=== PATIENT | female | born 1950 | race Caucasian/White ===

== ENCOUNTER → 2018-04-28 08:55 | Outpatient (CLI) | payer OTHER, MEDICARE, SELFPAY ==
[2018-04-28 11:55] LABS: Alanine Aminotransferase 31 IU/L (9-52); Albumin 4.1 g/dL (3.5-5.0); Albumin Globulin Ratio 1.6 (1.0-2.8); Alkaline Phosphatase 39 U/L (38-126); Aspartate Aminotransferase 20 IU/L (14-36); Bilirubin Total 0.6 mg/dL (0.2-1.3); Blood Urea Nitrogen 23 mg/dL (7-17); Carbon Dioxide 30 mmol/L (22-32); Chloride 103 mmol/L (98-107); Cholesterol 198 mg/dL (140-199); Estimated Glomerular Filt Rate 55.5 mL/min (>60); Globulin 2.6 g/dL (1.7-4.1); Glucose 87 mg/dL (80-110); HDL Cholesterol 49 mg/dL (40-60); HEMOLYSIS < 15 (0-50); LDL Cholesterol Calculated 135 mg/dL (<100); Sodium 145 mmol/L (137-145); Total Protein 6.7 g/dL (6.3-8.2); Triglycerides 70 mg/dL (35-150)
== END ==
PROVIDERS: PCP Internal Medicine; Visit Provider Internal Medicine
DX: F33.42 Major depressive disorder, recurrent, in full remission (principal); F41.9 Anxiety disorder, unspecified; F98.8 Other specified behavioral and emotional disorders with onset usually occurring in childhood and adolescence; Z13.6 Encounter for screening for cardiovascular disorders
CPT/HCPCS: 36415; 80053; 80061

== ENCOUNTER → 2019-04-30 07:37 | Outpatient (CLI) | payer OTHER, MEDICARE, SELFPAY ==
[2019-04-30 08:34] LABS: Alanine Aminotransferase 19 IU/L (<35); Albumin 4.4 g/dL (3.5-5.0); Albumin Globulin Ratio 1.9 (1.0-2.8); Alkaline Phosphatase 44 U/L (38-126); Aspartate Aminotransferase 21 IU/L (14-36); BUN Creatinine Ratio 15.5 (6-22); Bilirubin Total 0.8 mg/dL (0.2-1.3); Blood Urea Nitrogen 17 mg/dL (7-17); Calcium 9.5 mg/dL (8.4-10.2); Carbon Dioxide 28 mmol/L (22-32); Chloride 103 mmol/L (98-107); Cholesterol 236 mg/dL (140-199); Estimated Glomerular Filt Rate 49.5 mL/min (>60); Globulin 2.3 g/dL (1.7-4.1); Glucose 94 mg/dL (80-110); HDL Cholesterol 60 mg/dL (40-60); HEMOLYSIS < 15 (0-50); LDL Cholesterol Calculated 154 mg/dL (<100); Potassium 4.1 mmol/L (3.4-5.1); Sodium 137 mmol/L (137-145); Total Protein 6.7 g/dL (6.3-8.2); Triglycerides 111 mg/dL (35-150)
== END ==
PROVIDERS: Family Provider Internal Medicine; PCP Internal Medicine; Visit Provider Internal Medicine
DX: Z13.1 Encounter for screening for diabetes mellitus (principal); Z13.6 Encounter for screening for cardiovascular disorders; F33.42 Major depressive disorder, recurrent, in full remission; F98.8 Other specified behavioral and emotional disorders with onset usually occurring in childhood and adolescence
CPT/HCPCS: 36415; 80053; 80061

== ENCOUNTER → 2019-05-31 08:45 | Outpatient (CLI) | payer OTHER, MEDICARE, SELFPAY ==
--- NOTE | 2019-05-31 08:48 | DI.MG.S_ITS ---
BILATERAL DIGITAL SCREENING MAMMOGRAM 3D/2D WITH CAD: 05/31/2019 CLINICAL: Routine screening Family history of breast cancer. Comparison is made to exams dated: 05/05/2017 mammogram, 09/12/2015 mammogram, and 08/12/2014 mammogram - [facility]. The tissue of both breasts is heterogeneously dense. This may lower the sensitivity of mammography. Current study was also evaluated with a Computer Aided Detection (CAD) system. No significant masses, calcifications, or other findings are seen in either breast. There has been no significant interval change. IMPRESSION: NEGATIVE There is no mammographic evidence of malignancy. A 1 year screening mammogram is recommended. This exam was interpreted at Station ID: [id number]. NOTE: For mammograms, a report in lay terms will be sent to the patient. Approximately 15% of breast malignancies will not be visualized mammographically. In the management of a palpable breast mass, a negative mammogram must not discourage biopsy of a clinically suspicious lesion. Electronically Signed By: Yaneth zaragoza/penelope:05/31/2019 11:32:25 letter sent: Normal Exam ACR BI-RADS Category 1: Negative 3341F
== END ==
PROVIDERS: PCP Internal Medicine; Visit Provider Internal Medicine
DX: Z12.31 Encounter for screening mammogram for malignant neoplasm of breast (principal); Z80.3 Family history of malignant neoplasm of breast
CPT/HCPCS: 77063; 77067

== ENCOUNTER 2019-08-21 09:37 | Day surgery (SDC) | payer OTHER, MEDICARE, SELFPAY ==
--- NOTE | 2019-08-21 | PATH_ITS ---
[facility] Accession Number: [id number] . 01 Material submitted: . PART A: colon - COLON POLYP BIOPSY AT 40 CM PART B: colon - COLON POLYP AT 60 CM PART C: hepatic flexure - COLON POLYP BIOPSY AT HEPATIC FLEXURE PART D: colon - ASCENDING COLON NEAR CECUM POLYP BIOPSY . 02 Diagnosis: A. Colon, Polyp at 40 cm, Biopsy: Hyperplastic polyp with features of mucosal prolapse. . B. Colon, Polyp at 60 cm, Biopsy: Serrated lesion, favor sessile serrated adenoma. . C. Colon, Polyp at Hepatic Flexure, Biopsy: Serrated lesion, favor sessile serrated adenoma. . D. Ascending Colon Near Cecum, Polyp, Biopsy: Sessile serrated adenoma with areas of cytological dysplasia. Please see comment. No evidence of malignancy. [facility] 08/22/2019 0952 Local . 02 Comment: Part D: Current surveillance guidelines recommend that a sessile serrated adenoma with a cytological dysplasia should be treated similar to an advanced adenoma. Complete polypectomy and shortened surveillance interval are recommended. . As part of routine senior quality technician, Dr. Antonio Yanes also reviewed part D and agrees with the diagnosis. Dr. Jessica discussed results with Dr. Jamison on 08/22/2019. . 02 Electronically signed: . Lexis Jessica MD, Pathologist NPI- [id number] . 01 Gross description: . Part A: COLON POLYP BIOPSY AT 40 CM: Received in formalin are 2 fragment(s) of matthews, soft tissue measuring 0.1 x 0.1 x 0.1 cm to 0.2 x 0.2 x 0.2 cm submitted entirely in 1 cassette(s) Part B: COLON POLYP AT 60 CM: Received in formalin are multiple fragment(s) of matthews, soft tissue measuring 0.1 x 0.1 x 0.1 cm to 0.6 x 0.6 x 0.5 cm submitted entirely in 1 cassette(s) Part C: COLON POLYP BIOPSY AT HEPATIC FLEXURE: Received in formalin are 3 fragment(s) of matthews, soft tissue measuring 0.1 x 0.1 x 0.1 cm to 0.2 x 0.2 x 0.2 cm submitted entirely in 1 cassette(s) Part D: ASCENDING COLON NEAR CECUM POLYP BIOPSY: Received in formalin are multiple fragment(s) of matthews, soft tissue measuring 0.1 x 0.1 x 0.1 cm to 0.5 x 0.5 x 0.4 cm submitted entirely in 2 cassette(s) /[facility] 08/21/20192031 Local . 02 Pathologist provided ICD-10: D12.6, D12.0, D12.3 . 02 CPT . 247408, 879217, 842568, 087965 Performed at: 01 [facility] [address] [id number] MD Reed Jones MD Phone: [phone] Performed at: 02 [facility] [place] [address] [place], [place] [id number] MD Lexis Jessica MD Phone: [phone]
[2019-08-21] MEDS: SODIUM CHLORIDE 0.9% 1,000 ML 200 ML IV (09:58)
[2019-08-21 10:11] VITALS: BP 152/73; PULSE 57; RESP 15; TEMP 36.7; O2SAT 97; BMI 30.5
--- NOTE | 2019-08-21 11:19 | PM.HP.1 ---
History of Present Illness History of Present Illness Date Patient Seen: 08/21/19 Time Patient Seen: 11:19 Chief complaint: [id number] Narrative: The patient is a woman who is about 10 years out from her last colonoscopy. She apparently had a flat lesion on that exam and was advised to come back sooner but the 2nd attempt resulted in a poor prep and she has just been putting it off ever since. She has no family history of colon cancer Patient History Medical History Acne (Resolved ~1964) Anxiety (Chronic) Attention deficit disorder (Chronic) Cataract (Resolved 2013) Chicken pox (Resolved ~1957) Chronic back pain (Chronic ~1989) Hand fracture (Resolved 2005) History of adenomatous polyp of colon (Inactive) HIV exposure (Chronic 11/13/13) Major depression in partial remission (Chronic) Measles (Resolved ~1957) Mumps (Resolved ~1957) Obstructive sleep apnea syndrome (Chronic 03/30/16) Recurrent major depressive disorder, in full remission (Chronic ~1969) Surgical History Anesthesia complication (Resolved) History of colonoscopy with polypectomy (Resolved 01/09/10) History of left cataract surgery (Resolved 12/28/16) History of right cataract surgery (Resolved 01/11/17) Status post hysterectomy (Resolved 1994) Status post tonsillectomy and adenoidectomy (Resolved ~1955) Family & Social History Family History Brother Age: 64 Heart disease Hypertension Mother Age: 91 Macular degeneration Heart disease Sister Mental health problem Father Dementia Grandfather Lung disease Grandmother No problems noted. Grandfather Heart attack Grandmother No problems noted. Sister No problems noted. Social History: household members spouse lives independently Yes caregiver/support person No Tobacco & Substance use: Tobacco type cigarettes Smoking Status Current some day smoker alcohol intake current alcohol intake frequency 0-2 drinks per day Substance Use Type does not use Meds Home Medications and Allergies Home Medications Medication Instructions Recorded Confirmed Type CA PANTOTHENATE/FOLIC ACID/VIT 1 tab PO Q DAY #0 06/30/11 08/02/19 History (MULTIVITAMIN) omeprazole 20 mg PO QDAY #90 cap 11/14/18 08/21/19 Rx ResMed AirSense 10 Auto CPAP #1 ea 01/25/19 08/02/19 History venlafaxine 75 mg capsule,extended 75 mg PO BEDTIME #30 cap 05/03/19 08/21/19 Rx release 24 hr sertraline 100 mg tablet See Rx Instructions .ROUTE 07/03/19 08/21/19 Rx .COMPLEX #60 tablet methylphenidate HCl 10 mg tablet 10 mg PO TID #90 tab 08/06/19 08/21/19 Rx Allergies Allergy/AdvReac Type Severity Reaction Status Date / Time Penicillins [PENICILLINS] AdvReac Intermediate face Verified 08/21/19 10:01 swelling Sulfa (Sulfonamide AdvReac Intermediate GI Verified 08/21/19 10:01 Antibiotics) disturbance [SULFA (SULFONAMIDE ANTIBIOTICS)] Review of Systems Review of Systems ROS: Yes All systems reviewed with the patient and are negative except as otherwise documented Exam Vital Signs (past 8 hours): - 08/21/19 10:11 Temperature 98.0 F Pulse Rate 57 L Respiratory Rate 15 Blood Pressure 152/73 H Pulse Oximetry 97 Oxygen Delivery Method Room Air Narrative Exam Narrative: Pleasant cooperative patient no apparent distress. Lungs are clear to auscultation. No rales or rhonchi. Heart regular rate and rhythm no murmur gallop. Abdomen is soft nontender without mass. No obvious hernias. Patient is alert and oriented x3. Assessment & Plan Assessment & Plan narrative: The patient for a screening colonoscopy. I have discussed the procedure with them. Risks of bleeding, perforation which would necessitate major operation, failure to find remove all lesions, the potential tattoo were all discussed. All questions were answered. They wished to proceed.
--- NOTE | 2019-08-21 11:21 | PM.PREOP ---
Pre-operative Note Interval Note History & Physical reviewed/Exam performed by Physician: Yes Changes to H&P: No ASA Class (for procedural sedation): II
[2019-08-21] MEDS: MIDAZOLAM 5 MG/5 ML VIAL IV (12:04)
[2019-08-21] MEDS: fentaNYL 250 MCG/5 ML INJ IV (12:05)
[2019-08-21 13:04] VITALS: BP 156/82; PULSE 56; RESP 20; TEMP 36.5; O2SAT 99
--- NOTE | 2019-08-21 13:05 | PM.OP.ENDO ---
Operative Date/Time/Diagnoses Date of procedure: 08/21/19 Time of procedure: 13:05 Pre-op diagnosis: History of a flat polyp. Last colonoscopy over 10 years ago. In the interim she has had 1 attempted colonoscopy with a poor prep. She delayed further follow-up until now. Post-op diagnosis: same (Large polyps in the right colon. See details in the text. Extensive sigmoid diverticulosis. Thrombosed external hemorrhoid resolving.) Procedure & Clinicians Study performed: Colonoscopy with hot snare polypectomy multiple Same procedure as scheduled: Yes Indications: History of a polyp. Overdue for colonoscopy. Surgeon: Chaim Jamison Procedure Notes SCOAP/Timeout: Performed Procedure in detail: The patient was placed in the left lateral decubitus position and underwent IV sedation directed by the surgeon consisting of fentanyl and Versed. Digital exam was remarkable for a resolving thrombosed external hemorrhoid.. The scope was inserted and advanced through the rectum into the sigmoid, descending, transverse, and ascending colon. There was a polyp at 40 cm near the opening of a diverticulum which I biopsied and removed. There was a larger lesion at 60 which I biopsied and decided to remove the remainder of on the way out with a snare. The patient was noted to have extensive sigmoid diverticulosis. In area of tattoo was noted as I it went in that was somewhere near the hepatic flexure. This was presumed to represent the site of her prior flat polyp. In the region there were visible irregularities of the mucosa that were flat lesions. As I went from what I presume to be the hepatic flexure to the cecum I encountered some rather large flat polypoid lesions. All appeared to be soft and floppy. The cecum was reached identified by the ileocecal valve and the appendiceal opening. From the ascending colon near the cecum to the hepatic flexure there were multiple large lesions which I snared in pieces. All of these were flat. As best I could tell I had removed them but it was quite difficult to tell due to their size and the fact that the transition from normal mucosa to polyp was fairly subtle. The scope was gradually brought out. The polyp that I identified going in was located at 60 cm and I snared the remainder of it. This was placed in the 2nd container. No other Polyps were found. The scope ultimately was retroflexed in the rectum. The appearance was remarkable for and irritated hemorrhoid presumptively the extension of the thrombosed external hemorrhoid. The scope was removed and the patient tolerated the procedure well. The prep was excellent. Scope withdrawal time: At least 40minutes total. Sedation minutes: 53 Findings: diverticulosis (Extensive sigmoid) and polyp (Multiple) Specimen(s): other (Polyps) Complications: none Post-procedure Recommendations: Other recommendation (Repeat colonoscopy in 3 months to re-evaluate the lesions in the right colon) Follow up: months (Three for colonoscopy) Disposition: PACU
[2019-08-21 13:08] VITALS: BP 158/89; PULSE 58; RESP 17; O2SAT 96
[2019-08-21 13:13] VITALS: BP 148/82; PULSE 55; RESP 17; TEMP 36.4; O2SAT 98
[2019-08-21 13:31] VITALS: BP 148/76; PULSE 53; RESP 17; TEMP 36.1; O2SAT 97
--- NOTE | 2019-08-21 13:37 | SUR.PHASEII ---
Pt states she is ready to get dressed. IV removed and pt instructed to sit at edge of bed to get redressed. Ride notified and will me us at ED. Pt escorted to ED via [facility]
== END 2019-08-21 13:39 | disposition home or self-care (01) ==
PROVIDERS: PCP Internal Medicine; Referring Provider Specialist; Visit Provider Specialist
PROC: 0DJD8ZZ Inspection of Lower Intestinal Tract, Via Natural or Artificial Opening Endoscopic (ICD-10-PCS; CPT 45378; principal; 2019-08-21 10:45)
DX: Z12.11 Encounter for screening for malignant neoplasm of colon (principal); Z86.010 Personal history of colon polyps; K57.30 Diverticulosis of large intestine without perforation or abscess without bleeding; K64.8 Other hemorrhoids; D12.6 Benign neoplasm of colon, unspecified; D12.0 Benign neoplasm of cecum; D12.3 Benign neoplasm of transverse colon
CPT/HCPCS: 45385; 99152; 99153; J2250; J3010

== ENCOUNTER → 2020-04-30 09:55 | Outpatient (CLI) | payer OTHER, MEDICARE, SELFPAY ==
[2020-04-30 11:05] LABS: Alanine Aminotransferase 21 IU/L (<35); Albumin Globulin Ratio 1.8 (1.0-2.8); Alkaline Phosphatase 42 U/L (38-126); Aspartate Aminotransferase 19 IU/L (14-36); BUN Creatinine Ratio 21.8 (6-22); Bilirubin Total 0.5 mg/dL (0.2-1.3); Blood Urea Nitrogen 19 mg/dL (7-17); Calcium 9.3 mg/dL (8.4-10.2); Carbon Dioxide 32 mmol/L (22-32); Chloride 107 mmol/L (98-107); Cholesterol 197 mg/dL (140-199); Estimated Glomerular Filt Rate > 60.0 mL/min (>60); Globulin 2.2 g/dL (1.7-4.1); Glucose 103 mg/dL (80-110); HDL Cholesterol 65 mg/dL (40-60); HEMOLYSIS < 15 (0-50); LDL Cholesterol Calculated 114 mg/dL (<100); Potassium 4.1 mmol/L (3.4-5.1); Sodium 139 mmol/L (137-145); Total Protein 6.2 g/dL (6.3-8.2); Triglycerides 90 mg/dL (35-150)
== END ==
PROVIDERS: PCP Internal Medicine; Referring Provider Internal Medicine; Visit Provider Internal Medicine
DX: F33.42 Major depressive disorder, recurrent, in full remission (principal); F90.0 Attention-deficit hyperactivity disorder, predominantly inattentive type; Z13.220 Encounter for screening for lipoid disorders; Z13.6 Encounter for screening for cardiovascular disorders
CPT/HCPCS: 36415; 80053; 80061

== ENCOUNTER → 2021-04-04 09:47 | Outpatient (CLI) | payer OTHER, MEDICARE, SELFPAY ==
--- NOTE | 2021-04-04 09:49 | DI.MG.S_ITS ---
BILATERAL DIGITAL SCREENING MAMMOGRAM 3D/2D WITH CAD: 04/04/2021 CLINICAL: Routine screening. Family history of breast cancer. Comparison is made to exams dated: 05/31/2019 mammogram, 05/05/2017 mammogram, 09/12/2015 mammogram, and 08/12/2014 mammogram - [facility]. The tissue of both breasts is heterogeneously dense. This may lower the sensitivity of mammography. Current study was also evaluated with a Computer Aided Detection (CAD) system. No significant masses, calcifications, or other findings are seen in either breast. There has been no significant interval change. IMPRESSION: NEGATIVE There is no mammographic evidence of malignancy. A 1 year screening mammogram is recommended. This exam was interpreted at Station ID: [id number]. NOTE: For mammograms, a report in lay terms will be sent to the patient. Approximately 15% of breast malignancies will not be visualized mammographically. In the management of a palpable breast mass, a negative mammogram must not discourage biopsy of a clinically suspicious lesion. Electronically Signed By: Devin teran/penelope:04/06/2021 08:11:11 letter sent: Normal Exam ACR BI-RADS Category 1: Negative 3341F
== END ==
PROVIDERS: PCP Internal Medicine; Referring Provider Internal Medicine; Visit Provider Internal Medicine
DX: Z12.31 Encounter for screening mammogram for malignant neoplasm of breast (principal); Z80.3 Family history of malignant neoplasm of breast
CPT/HCPCS: 77063; 77067

== ENCOUNTER → 2021-04-28 11:06 | Outpatient (CLI) | payer OTHER, MEDICARE, SELFPAY ==
[2021-04-28 12:34] LABS: Alanine Aminotransferase 18 IU/L (<35); Albumin 4.2 g/dL (3.5-5.0); Albumin Globulin Ratio 1.9 (1.0-2.8); Alkaline Phosphatase 41 U/L (38-126); Aspartate Aminotransferase 24 IU/L (14-36); BUN Creatinine Ratio 14.6 (6-22); Bilirubin Total 0.5 mg/dL (0.2-1.3); Blood Urea Nitrogen 14 mg/dL (7-17); Calcium 9.5 mg/dL (8.4-10.2); Carbon Dioxide 33 mmol/L (22-32); Chloride 101 mmol/L (98-107); Estimated Glomerular Filt Rate 57.6 mL/min (>60); Globulin 2.2 g/dL (1.7-4.1); Glucose 98 mg/dL (80-110); HEMOLYSIS < 15 (0-50); Potassium 4.3 mmol/L (3.4-5.1); Sodium 138 mmol/L (137-145); Total Protein 6.4 g/dL (6.3-8.2)
== END ==
PROVIDERS: PCP Internal Medicine; Referring Provider Internal Medicine; Visit Provider Internal Medicine
DX: F33.41 Major depressive disorder, recurrent, in partial remission (principal); F90.0 Attention-deficit hyperactivity disorder, predominantly inattentive type; Z79.899 Other long term (current) drug therapy
CPT/HCPCS: 36415; 80053

== ENCOUNTER → 2022-04-27 11:00 | Outpatient (CLI) | payer OTHER, MEDICARE, SELFPAY ==
[2022-04-27 11:47] LABS: Add Manual Diff / Slide Review NO; Basophils Absolute Auto 100 /uL (0-100); Basophils Percent Auto 1.2 % (0-2); Eosinophils Absolute Auto 300 /uL (0-450); Eosinophils Percent Auto 3.9 % (2-4); Hematocrit 39.5 % (36-46); Hemoglobin 13.5 g/dL (12.0-16.0); Lymphocytes Absolute Auto 2800 /uL (1100-4500); Lymphocytes Percent Auto 40.9 % (25-40); Mean Corpuscular HGB Conc 34.1 % (30-36); Mean Corpuscular Hemoglobin 32.1 PG (26-34); Mean Corpuscular Volume 94.1 fL (80-100); Monocytes Absolute Auto 400 /uL (0-900); Monocytes Percent Auto 6.1 % (3-14); Neutrophils Absolute Auto 3200 /uL (1500-7000); Neutrophils Percent Auto 47.9 % (50-75); Platelet Count 203 X10^3/uL (150-400); Red Cell Distribution Width 13.2 % (11.6-14.8); White Blood Cell Count 6.8 X10^3/uL (4.5-11.0)
[2022-04-27 12:02] LABS: Alanine Aminotransferase 27 IU/L (<35); Albumin 4.4 g/dL (3.5-5.0); Albumin Globulin Ratio 1.7 (1.0-2.8); Alkaline Phosphatase 47 U/L (38-126); Aspartate Aminotransferase 32 IU/L (14-36); BUN Creatinine Ratio 16.8 (6-22); Bilirubin Total 0.5 mg/dL (0.2-1.3); Blood Urea Nitrogen 16 mg/dL (7-17); Calcium 9.2 mg/dL (8.4-10.2); Carbon Dioxide 30 mmol/L (22-32); Chloride 103 mmol/L (98-107); Estimated Glomerular Filt Rate > 60 mL/min (>60); Globulin 2.6 g/dL (1.7-4.1); Glucose 99 mg/dL (80-110); HEMOLYSIS 15 (0-50); Potassium 4.3 mmol/L (3.4-5.1); Sodium 137 mmol/L (137-145)
== END ==
PROVIDERS: PCP Internal Medicine; Referring Provider Internal Medicine; Visit Provider Internal Medicine
DX: D64.9 Anemia, unspecified (principal); F33.41 Major depressive disorder, recurrent, in partial remission; Z86.010 Personal history of colon polyps
CPT/HCPCS: 36415; 80053; 85025

== ENCOUNTER → 2022-05-05 10:01 | Outpatient (CLI) | payer OTHER, MEDICARE, SELFPAY ==
[2022-05-05 10:49] LABS: COVID19 -Nasal RAPID Negative (Negative)
== END ==
PROVIDERS: PCP Internal Medicine; Visit Provider Surgery
DX: Z20.822 Contact with and (suspected) exposure to COVID-19 (principal); Z01.812 Encounter for preprocedural laboratory examination
CPT/HCPCS: 87635; C9803

== ENCOUNTER 2022-05-06 08:31 | Day surgery (SDC) | payer OTHER, MEDICARE, SELFPAY ==
--- NOTE | 2022-05-06 | PATH_ITS ---
[facility] Accession Number: [id number] . 01 Material submitted: . PART A: colon - CECAL POLYP PART B: colon - ASCENDING COLON POLYP PART C: colon - HEPATIC FLEXURE COLON POLYP PART D: colon - DESCENDING COLON POLYP . 01 Diagnosis: A. Cecum, Polyp, Biopsy: Sessile serrated adenoma. . B. Ascending Colon, Polyp, Biopsy: Sessile serrated adenoma. . C. Hepatic Flexure, Polyp, Biopsy: Sessile serrated adenoma. . D. Descending Colon Polyp, Biopsy: Sessile serrated adenoma. V 05/10/2022 1440 Local . 01 Electronically signed: . Lexis Jessica MD, Pathologist NPI- [id number] . 01 Gross description: . Part A: CECAL POLYP: Received in formalin are multiple fragment(s) of matthews, soft tissue measuring 0.1 x 0.1 x 0.1 cm to 0.7 x 0.5 x 0.5 cm submitted entirely in 1 cassette(s) Part B: ASCENDING COLON POLYP: Received in formalin are multiple fragment(s) of matthews, soft tissue measuring 0.1 x 0.1 x 0.1 cm to 0.7 x 0.7 x 0.5 cm submitted entirely in 1 cassette(s) Part C: HEPATIC FLEXURE COLON POLYP: Received in formalin are multiple fragment(s) of matthews, soft tissue measuring 0.1 x 0.1 x 0.1 cm to 0.6 x 0.6 x 0.4 cm submitted entirely in 1 cassette(s) Part D: DESCENDING COLON POLYP: Received in formalin is 1 fragment(s) of matthews, soft tissue measuring 0.8 x 0.8 x 0.3 cm submitted entirely in 1 cassette(s) /[facility] 05/07/2022 1950 Local . 01 Pathologist provided ICD-10: D12.0, D12.2, D12.3, D12.4 . 01 CPT . 759380, 867366, 643740, 839182 Specimen Comment: A courtesy copy of this report has been sent to [phone] Performed at: 01 [facility] [address] [place] [address], [place], [place] [id number] MD Reed Jones MD Phone: [phone]
[2022-05-06 08:49] VITALS: BP 125/80; PULSE 73; RESP 20; TEMP 36.4; O2SAT 98; BMI 31.3
[2022-05-06] MEDS: LACTATED RINGERS 1,000 ML 200 ML IV (08:54)
--- NOTE | 2022-05-06 09:40 | PM.HP.1 ---
History of Present Illness History of Present Illness Date Patient Seen: 05/06/22 Time Patient Seen: 09:40 Chief complaint: Colonoscopy Narrative: Anais is a 71-year-old woman who has had significant polyps removed past. She most recently had a colonoscopy in [address] Jamison in several right-sided polyps were biopsied Patient History Medical History (Updated 05/09/20 @ 11:25 by Crow Mueller MD) Acne (~1965) Anxiety Attention deficit disorder Cataract (2013) Chronic back pain (~1989) Hand fracture (2005) History of adenomatous polyp of colon HIV exposure (11/13/13) Major depression in partial remission Obstructive sleep apnea syndrome (03/30/16) Recurrent major depressive disorder, in full remission (~1969) Surgical History (Updated 07/24/20 @ 08:47 by userfox Pr) Anesthesia complication History of colonoscopy with polypectomy (01/09/10) History of left cataract surgery (12/28/16) History of right cataract surgery (01/11/17) Status post hysterectomy (1994) Status post tonsillectomy and adenoidectomy (~1955) Family & Social History Family History Brother Age: 67 Heart disease Hypertension Mother Age: 94 Macular degeneration Heart disease Sister Mental health problem Father Dementia Grandfather Lung disease Grandmother No problems noted. Grandfather Heart attack Grandmother No problems noted. Sister No problems noted. Social History: household members spouse lives independently Yes caregiver/support person No Tobacco & Substance use: Tobacco type cigarettes Smoking Status Current some day smoker alcohol intake current alcohol intake frequency 0-2 drinks per day Substance Use Type does not use Meds Home Medications and Allergies Home Medications Medication Instructions Recorded Confirmed Type CA PANTOTHENATE/FOLIC ACID/VIT 1 tab PO Q DAY ##0 06/30/11 04/27/22 History (MULTIVITAMIN) ResMed AirSense 10 Auto CPAP #1 ea 01/25/19 04/27/22 History sertraline 100 mg tablet 200 mg PO DAILY #180 tabs 04/08/21 05/06/22 Rx venlafaxine 75 mg capsule,extended 75 mg PO BEDTIME #90 caps 04/30/21 05/06/22 Rx release 24 hr methylphenidate HCl 20 mg 20 mg PO DAILY #30 tabs 04/27/22 05/06/22 Rx tablet,extended release omeprazole 20 mg capsule,delayed 20 mg PO QDAY #90 caps 04/27/22 05/06/22 Rx release Allergies Allergy/AdvReac Type Severity Reaction Status Date / Time Penicillins [PENICILLINS] AdvReac Intermediate face Verified 05/06/22 08:43 swelling Sulfa (Sulfonamide AdvReac Intermediate GI Verified 05/06/22 08:43 Antibiotics) disturbance [SULFA (SULFONAMIDE ANTIBIOTICS)] Exam Vital Signs (past 8 hours): - 05/06/22 08:49 Temperature 97.6 F Pulse Rate 73 Respiratory Rate 20 Blood Pressure 125/80 Pulse Oximetry 98 Oxygen Delivery Method Room Air Oxygen Delivery Method Room Air Const General: comfortable Resp Effort & Inspection: normal respiratory effort Assessment & Plan Assessment and plan (1) History of adenomatous polyp of colon: Status: Inactive Plan 71-year-old woman with a history of advanced colon polyps who is here for colonoscopy. We reviewed the risks and benefits and she would like to proceed. Time Spent With Patient Critical Care time: I spent a total of [] minutes of critical care time on this patient's care today; this time is exclusive of procedural time.
--- NOTE | 2022-05-06 11:00 | PM.OP.COLON ---
Operative Date/Time/Diagnoses Date of procedure: 05/06/22 Time of procedure: 11:01 Pre-op diagnosis: History of polyps Procedure & Clinicians Study performed: Colonoscopy Same procedure as scheduled: Yes Surgeon: Magen Flores Procedure Notes Procedure in detail: Surgeon: Magen Flores MD Anesthesia: Deep sedation by Dr. Powers Procedure: The patient was brought to the endoscopy suite, placed in left lateral decubitus position. The patient was connected to monitoring devices. A time-out was performed. Sedation was administered. Once the patient was adequately sedated, a digital rectal exam was performed and was normal. The scope was then inserted and advanced to the cecum where the appendiceal orifice was identified and photographed. The scope was then slowly withdrawn over greater than 6 minutes. The mucosa was thoroughly inspected. 1. There was a rather large flat polyp in the cecum. This polyp was probably 3 cm across. This was lifted with a saline lift. It was then removed in multiple passes using cold snare and hot snare. We used both a 10 mm snare and a 20 mm snare. Snare was used to divide the chunks of tissue in 2 small enough fragments that they could be suctioned into trap. This flat polyp appeared to be on a fold and could not be completely removed. 2. There was another similar polyp in the ascending colon which was probably 2 cm across. This was also removed piecemeal with hot snare. This was sent separately. 3. There was a 1.5 cm flat polyp near the hepatic flexure or proximal transverse colon. This was removed with hot snare. Because of its location in the presumed proximal transverse colon a tattoo was placed at this location in case the patient ends up needing a right hemicolectomy. 4. There was a 1 cm flat polyp in the descending colon removed with a hot snare. The scope was retroflexed in the rectum. No other abnormalities were noted. The scope was straightened and removed. The patient was awakened and brought to recovery. Scope withdrawal time: 55 Sedation time: 65 EBL: 10 mL Findings: Multiple flat polyps as detailed above Post-procedure Recommendations: Will call with biopsy results Follow up: weeks Disposition: PACU
[2022-05-06 11:02] VITALS: BP 148/73; PULSE 52; RESP 14; TEMP 37
[2022-05-06 11:07] VITALS: BP 132/77; PULSE 69; RESP 14; O2SAT 98
[2022-05-06 11:12] VITALS: BP 132/72; PULSE 48; RESP 14; O2SAT 97
[2022-05-06 11:17] VITALS: BP 131/81; PULSE 48; RESP 12; O2SAT 99
[2022-05-06 11:24] VITALS: BP 112/62; PULSE 53; RESP 16; TEMP 36.4; O2SAT 97
== END 2022-05-06 11:38 | disposition home or self-care (01) ==
PROVIDERS: PCP Internal Medicine; Referring Provider Surgery; Visit Provider Surgery
PROC: 0DJD8ZZ Inspection of Lower Intestinal Tract, Via Natural or Artificial Opening Endoscopic (ICD-10-PCS; CPT 45378; principal; 2022-05-06 09:30)
DX: Z12.11 Encounter for screening for malignant neoplasm of colon (principal); Z86.010 Personal history of colon polyps; D12.2 Benign neoplasm of ascending colon; D12.0 Benign neoplasm of cecum; D12.4 Benign neoplasm of descending colon; D12.3 Benign neoplasm of transverse colon
CPT/HCPCS: 45381; 45385; J2704; J3010

== ENCOUNTER → 2023-04-16 10:39 | Outpatient (CLI) | payer OTHER, MEDICARE, SELFPAY ==
--- NOTE | 2023-04-16 | DI.MG.S_ITS ---
BILATERAL DIGITAL SCREENING MAMMOGRAM 3D/2D WITH CAD: 04/16/2023 CLINICAL: Routine screening. Family history of breast cancer. Comparison is made to exams dated: 04/04/2021 mammogram, 05/31/2019 mammogram, 05/05/2017 mammogram, and 09/12/2015 mammogram - [facility]. Both breasts are heterogeneously dense, which may obscure small masses (category c / 51-75% glandular tissue). Current study was also evaluated with a Computer Aided Detection (CAD) system. No significant masses, calcifications, or other findings are seen in either breast. There has been no significant interval change. IMPRESSION: NEGATIVE There is no mammographic evidence of malignancy. A 1 year screening mammogram is recommended. Based on the Tyrer Cuzick model (a risk assessment model) the patient's lifetime risk is 4.6% and her 10 year risk is 3.1%. According to the ACR, ACS, and NCCN guidelines, an annual breast MRI exam along with mammogram is recommended if the patient's lifetime risk is 20% or greater. This exam was interpreted at Station ID: [id number]. NOTE: For mammograms, a report in lay terms will be sent to the patient. Approximately 15% of breast malignancies will not be visualized mammographically. In the management of a palpable breast mass, a negative mammogram must not discourage biopsy of a clinically suspicious lesion. Electronically Signed By: Devin teran/penelope:04/16/2023 12:59:11 letter sent: Normal Exam ACR BI-RADS Category 1: Negative 3341F
== END ==
PROVIDERS: PCP Internal Medicine; Referring Provider Internal Medicine; Visit Provider Internal Medicine
DX: Z12.31 Encounter for screening mammogram for malignant neoplasm of breast (principal); Z80.3 Family history of malignant neoplasm of breast
CPT/HCPCS: 77063; 77067

== ENCOUNTER → 2023-05-05 12:53 | Outpatient (CLI) | payer OTHER, MEDICARE, SELFPAY ==
[2023-05-05 13:49] LABS: Alanine Aminotransferase 21 IU/L (<35); Albumin 4.2 g/dL (3.5-5.0); Albumin Globulin Ratio 1.8 (1.0-2.8); Alkaline Phosphatase 39 U/L (38-126); Aspartate Aminotransferase 20 IU/L (14-36); BUN Creatinine Ratio 16.5 (6-22); Bilirubin Total 0.6 mg/dL (0.2-1.3); Blood Urea Nitrogen 17 mg/dL (7-17); Calcium 9.8 mg/dL (8.4-10.2); Carbon Dioxide 31 mmol/L (22-32); Chloride 101 mmol/L (98-107); Estimated Glomerular Filt Rate 58 mL/min (>60); Globulin 2.4 g/dL (1.7-4.1); Glucose 98 mg/dL (80-110); HEMOLYSIS < 15 (0-50); Potassium 4.2 mmol/L (3.4-5.1); Sodium 138 mmol/L (137-145); Total Protein 6.6 g/dL (6.3-8.2)
== END ==
PROVIDERS: PCP Internal Medicine; Referring Provider Internal Medicine; Visit Provider Internal Medicine
DX: F41.9 Anxiety disorder, unspecified (principal); F98.8 Other specified behavioral and emotional disorders with onset usually occurring in childhood and adolescence; G47.33 Obstructive sleep apnea (adult) (pediatric); F32.4 Major depressive disorder, single episode, in partial remission
CPT/HCPCS: 36415; 80053

== ENCOUNTER → 2023-08-30 16:48 | Outpatient (CLI) | payer OTHER, MEDICARE, SELFPAY ==
--- NOTE | 2023-08-30 16:50 | DI.RAD.S_ITS ---
PROCEDURE: XR ANKLE RT MIN 3V INDICATIONS: right ankle pain TECHNIQUE: Three views of the ankle were acquired. COMPARISON: None. FINDINGS: Bones: Normal mineralization. There are minimally displaced avulsion fractures or degenerative spurs at the distal fibula. There is a small, corticated probable ossicle distal to the fibula as well. Mild spurring at the medial tibiotalar articulation. Soft tissues: No tibiotalar joint effusion. Moderate lateral periarticular soft tissue thickening. Achilles tendon appears normal. IMPRESSION: Possible distal fibular tip avulsion fractures with overlying soft tissue swelling. Dictated by: Yaneth Holliday M.D. on 08/31/2023 at 10:08 Approved by: Yaneth Holliday M.D. on 08/31/2023 at 10:11
== END ==
LOC: RAD 16:50
PROVIDERS: PCP Internal Medicine; Referring Provider Internal Medicine; Visit Provider Internal Medicine
DX: M25.571 Pain in right ankle and joints of right foot (principal); M79.89 Other specified soft tissue disorders
CPT/HCPCS: 73610

== ENCOUNTER → 2024-05-23 14:58 | Outpatient (CLI) | payer OTHER, MEDICARE, SELFPAY ==
--- NOTE | 2024-05-23 14:59 | DI.MG.S_ITS ---
BILATERAL DIGITAL SCREENING MAMMOGRAM 3D/2D WITH CAD: 05/23/2024 CLINICAL: Routine screening. Family history of breast cancer. Comparison is made to exams dated: 04/16/2023 mammogram, 04/04/2021 mammogram, and 05/31/2019 mammogram - [facility]. The breasts are heterogeneously dense, which may obscure small masses (category c / 51-75% glandular tissue). Current study was also evaluated with a Computer Aided Detection (CAD) system. There is a focal asymmetry in the right breast at 12 o'clock anterior depth. No other significant masses, calcifications, or other findings are seen in either breast. IMPRESSION: INCOMPLETE: NEED ADDITIONAL IMAGING EVALUATION The focal asymmetry in the right breast is indeterminate. Additional views with possible ultrasound are recommended. Based on the Tyrer Cuzick model (a risk assessment model) the patient's lifetime risk is 8.6% and her 10 year risk is 6.4%. According to the ACR, ACS, and NCCN guidelines, an annual breast MRI exam along with mammogram is recommended if the patient's lifetime risk is 20% or greater. This exam was interpreted at Station ID: [id number]. NOTE: For mammograms, a report in lay terms will be sent to the patient. Approximately 15% of breast malignancies will not be visualized mammographically. In the management of a palpable breast mass, a negative mammogram must not discourage biopsy of a clinically suspicious lesion. Electronically Signed By: Azul layne/penelope:05/23/2024 16:03:05 letter sent: Additional Imaging Needed ACR BI-RADS Category 0: Incomplete: Need Additional Imaging Evaluation
== END ==
PROVIDERS: PCP Internal Medicine; Referring Provider Internal Medicine; Visit Provider Internal Medicine
DX: Z12.31 Encounter for screening mammogram for malignant neoplasm of breast (principal); Z80.3 Family history of malignant neoplasm of breast; R92.333 Mammographic heterogeneous density, bilateral breasts
CPT/HCPCS: 77063; 77067

== ENCOUNTER → 2024-06-06 | Outpatient (CLI) | payer OTHER, MEDICARE, SELFPAY ==
--- NOTE | 2024-06-06 09:13 | DI.US.S_ITS ---
LIMITED ULTRASOUND OF RIGHT BREAST AND AXILLA: 06/06/2024 CLINICAL: Patient returns today to evaluate a focal asymmetry in the right breast. Comparison is made to exams dated: 06/06/2024 mammogram, 05/23/2024 mammogram, 04/16/2023 mammogram, 04/04/2021 mammogram, 05/31/2019 mammogram, and 05/05/2017 mammogram - [facility]. Color flow and real-time ultrasound of the right breast 12 o'clock, and axilla regions were performed. Jansen scale images of the real-time examination were reviewed. There is an irregular hypoechoic mass with spiculated margins at 12 o'clock, 5 cm from the nipple measuring 0.4 x 0.4 x 0.6 cm. There is surrounding echogenicity mass. This finding corresponds to the mammographic mass. There is an additional hypoechoic irregular area in the right breast at 12 o'clock, 6 cm from the nipple measuring up to 0.5 cm. No mammographic correlate identified. This finding is subtle and may represent shadowing from fibroglandular tissue. No abnormal lymph nodes are seen in the right axilla. IMPRESSION: SUSPICIOUS 1) Right breast 0.6 cm spiculated mass at 12 o'clock, 5 cm from the nipple. Finding is suspicious. Recommend ultrasound-guided core biopsy. 2) Right breast possible 0.5 cm mass at 12 o'clock, 6 cm from the nipple. Recommend re-evaluation of finding at time of ultrasound biopsy. If the finding persists consider core sampling of this area given the close proximity to the 12 o'clock, 5 cm from the nipple mass (can be submitted as single specimen). Findings and recommendations were discussed with the patient by Dr. Beck during today's examination. This exam was interpreted at Station ID: [id number]. Electronically Signed By: Vanessa Resendiz M.D., Ph.D. eb/:06/07/2024 13:57:28 letter sent: Biopsy Required ACR BI-RADS Category 4: Suspicious
--- NOTE | 2024-06-06 09:13 | DI.MG.S_ITS ---
UNILATERAL RIGHT DIGITAL DIAGNOSTIC MAMMOGRAM 3D/2D WITH ADDITIONAL VIEWS: 06/06/2024 CLINICAL: Additional evaluation requested from prior study. Comparison is made to exams dated: 05/23/2024 mammogram, 04/04/2021 mammogram, and 04/16/2023 mammogram - [facility]. The breasts are heterogeneously dense, which may obscure small masses (category c / 51-75% glandular tissue). There is a 0.7 cm irregular mass with a spiculated margin in the right breast at 12 o'clock posterior depth. This is seen in additional views. No other significant masses or calcifications are seen in the breast. IMPRESSION: INCOMPLETE: NEED ADDITIONAL IMAGING EVALUATION The 0.7 cm irregular mass in the right breast is indeterminate. An ultrasound is recommended for further evaluation and is scheduled to immediately follow this examination. Based on the Tyrer Cuzick model (a risk assessment model) the patient's lifetime risk is 8.6% and her 10 year risk is 6.4%. According to the ACR, ACS, and NCCN guidelines, an annual breast MRI exam along with mammogram is recommended if the patient's lifetime risk is 20% or greater. This exam was interpreted at Station ID: [id number]. NOTE: For mammograms, a report in lay terms will be sent to the patient. Approximately 15% of breast malignancies will not be visualized mammographically. In the management of a palpable breast mass, a negative mammogram must not discourage biopsy of a clinically suspicious lesion. Electronically Signed By: Vanessa Resendiz M.D., Ph.D. eb/:06/07/2024 19:28:14 letter sent: Additional Imaging Needed ACR BI-RADS Category 0: Incomplete: Need Additional Imaging Evaluation
[2024-06-06 12:21] LABS: Add Manual Diff / Slide Review NO; Basophils Absolute Auto 100 /uL (0-100); Eosinophils Absolute Auto 300 /uL (0-450); Eosinophils Percent Auto 3.5 % (2-4); Hematocrit 41.5 % (36-46); Hemoglobin 14.1 g/dL (12.0-16.0); Lymphocytes Absolute Auto 2800 /uL (1100-4500); Lymphocytes Percent Auto 34.1 % (25-40); Mean Corpuscular HGB Conc 33.9 % (30-36); Mean Corpuscular Hemoglobin 32.2 PG (26-34); Mean Corpuscular Volume 94.9 fL (80-100); Monocytes Absolute Auto 500 /uL (0-900); Monocytes Percent Auto 6.6 % (3-14); Neutrophils Absolute Auto 4500 /uL (1500-7000); Neutrophils Percent Auto 54.8 % (50-75); Platelet Count 222 X10^3/uL (150-400); Red Blood Cell Count 4.37 X10^6/uL (4.0-5.2); Red Cell Distribution Width 13.4 % (11.6-14.8); White Blood Cell Count 8.2 X10^3/uL (4.5-11.0)
[2024-06-06 12:43] LABS: Alanine Aminotransferase 26 IU/L (<35); Albumin 4.4 g/dL (3.5-5.0); Albumin Globulin Ratio 1.9 (1.0-2.8); Alkaline Phosphatase 53 U/L (38-126); Aspartate Aminotransferase 27 IU/L (14-36); BUN Creatinine Ratio 15.3 (6-22); Bilirubin Total 0.7 mg/dL (0.2-1.3); Blood Urea Nitrogen 17 mg/dL (7-17); Calcium 9.5 mg/dL (8.4-10.2); Carbon Dioxide 31 mmol/L (22-32); Chloride 106 mmol/L (98-107); Cholesterol 240 mg/dL (140-199); Estimated Glomerular Filt Rate 53 mL/min (>60); Globulin 2.3 g/dL (1.7-4.1); Glucose 91 mg/dL (80-110); HDL Cholesterol 86 mg/dL (40-60); HEMOLYSIS < 15 (0-50); LDL Cholesterol Calculated 136 mg/dL (<100); Potassium 4.3 mmol/L (3.4-5.1); Sodium 140 mmol/L (137-145); Total Protein 6.7 g/dL (6.3-8.2); Triglycerides 92 mg/dL (35-150)
[2024-06-06 13:07] LABS: TSH w/ Reflex to FT4 2.56 uIU/mL (0.47-4.68)
== END ==
PROVIDERS: PCP Internal Medicine; Referring Provider Internal Medicine; Visit Provider Internal Medicine
DX: R92.8 Other abnormal and inconclusive findings on diagnostic imaging of breast (principal); R92.333 Mammographic heterogeneous density, bilateral breasts; N63.15 Unspecified lump in the right breast, overlapping quadrants; E03.9 Hypothyroidism, unspecified; F33.41 Major depressive disorder, recurrent, in partial remission; G47.33 Obstructive sleep apnea (adult) (pediatric); Z13.6 Encounter for screening for cardiovascular disorders; Z13.220 Encounter for screening for lipoid disorders; D64.9 Anemia, unspecified
CPT/HCPCS: 36415; 76642; 77065; 80053; 80061; 84443; 85025; G0279

== ENCOUNTER → 2024-07-06 08:50 | Outpatient (CLI) | payer OTHER, MEDICARE, SELFPAY ==
--- NOTE | 2024-07-06 | PATH_ITS ---
[facility] Accession Number: [id number] No. of containers..01 Tissue . 01 Material submitted: . breast - RIGHT BREAST 12:00 5 CM FN . 01 Diagnosis: RIGHT BREAST, 12 O'CLOCK, 5 CM FN, IMAGE-GUIDED BIOPSIES: Invasive ductal carcinoma. Histologic grade: Low-grade, grade 1/3. Tubule formation: 2/3, nuclear pleomorphism 2/3, mitotic index 1/3, total: 5/9, low-grade. Largest dimension as measured microscopically on the glass slide: 3 mm. Ductal carcinoma in situ: Present, cribriform pattern, intermediate nuclear grade, with rare calcification, negative for comedonecrosis. Lymphovascular invasion: Not identified. Prognostic and predictive biomarkers as follows: Estrogen receptor: Positive, strong intensity, 91-100% of the invasive tumor cells. Progesterone receptor: Positive, intermediate to strong intensity, 81-90%. HER2 by immunostain: Negative, 1+. [facility] 07/11/2024 1335 Local . 01 Comment: As part of ongoing air quality manager, this case is also reviewed by Dr. Debra Carolina, who agrees with the interpretation. . Results were called to ROMAN Brown, on 07/10/2024 at 3:35 p.m. . 01 Electronically signed: . Qi Starr MD, Pathologist NPI- [id number] . 01 Gross description: . The specimen is received in formalin, labeled with two patient identifiers and right breast 12 o'clock 5 cm from the nipple on the specimen container lid, and consists of a 2.1 x 1.1 x 0.3 cm aggregate of hemorrhagic, yellow to matthews, fibrofatty soft tissue cores, which are entirely submitted in cassette A1. . The specimen was removed on 07/06/2024 at 10:23. The total fixation time was 23.5 hours. ([id number]) /FRR 07/07/2024 1322 Local . 01 Microscopic: . E-cadherin immunostain is performed and shows strong positivity on the invasive tumor cells, supporting ductal-type of this invasive mammary carcinoma. . P63 and myosin immunostains are performed and show absence of basal and myoepithelial cell layer, supporting the diagnosis. . * This test was developed and the performance characteristics were validated by [facility]. It has not been cleared or approved by the U.S. Food and Drug Administration. . Internal controls for ER and UT are positive. Cold ischemic time is <5 minutes. The scoring criteria for breast biomarkers by immunohistochemistry is based on the ASCO/CAP guidelines (Estelle AC et al, J Clin Oncol: 2017Dec 27;36(20):3384-0653 and Sandra ME et al, Arch Pathol Lab Med: 2009;134(6):907-22). Deparaffinized sections of formalin fixed tissue (along with appropriate positive controls) are incubated with the above antibody(s). Using the automated [place] stainer, tissue is incubated with the designated antibody which is then localized by a non-biotin, dual polymer detection system. The external controls are reviewed for appropriate reactivity and found to be adequate. Results on the target cell population are indicated above. These tests have not been validated on decalcified or alcohol-based fixed tissue. . 01 Pathologist provided ICD-10: C50.811 . 01 CPT . 423729, K09085, B66546, 771713, 930365, 611579 Specimen Comment: A courtesy copy of this report has been sent to [facility]ology Performed at: [address], [place], [place] [id number] MD Reed Jones MD Phone: [phone]
--- NOTE | 2024-07-06 08:54 | DI.US.S_ITS ---
ULTRASOUND GUIDED BIOPSY RIGHT BREAST WITH MARKING DEVICE INSERTED: 07/06/2024 CLINICAL: Right breast mass. PATIENT CONSENT: Risks (minor bleeding, infection, vasovagal reaction and repeat procedure), benefits and alternatives were explained to the patient and written informed consent was obtained. Correlation is made to exams dated: 07/06/2024 mammogram, 06/06/2024 ultrasound, 06/06/2024 mammogram, 05/23/2024 mammogram, 04/16/2023 mammogram, and 04/04/2021 mammogram - [facility]. An ultrasound guided biopsy using real-time ultrasound was performed for the nodule located in the right breast at 12 o'clock middle depth. This was described on the previous ultrasound report. The skin was prepped in the usual manner. Local anesthetic was administered to the access site. A small incision was made in the breast. The abnormality was approached from the medial aspect. A biopsy needle was placed adjacent to the abnormality under ultrasound guidance. Once the needle was documented to be in the correct location, five specimens were obtained using a BARD biopsy device. The patient received additional local anesthetic during the procedure. A clip was inserted into the biopsy cavity. A skin adhesive was applied to the access site. The specimens were sent to the laboratory for pathological analysis. IMPRESSION: ULTRASOUND GUIDED BIOPSY MALIGNANT Ultrasound guided biopsy of the nodule in the right breast at 12 o'clock middle depth was successful with no apparent post procedure complications. 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 Pathology results are concordant with imaging findings. Oncologic/surgical consult recommended. This exam was interpreted at Station ID: [id number]. Erik davila,/:07/12/2024 11:30:54
--- NOTE | 2024-07-06 08:55 | DI.MG.S_ITS ---
UNILATERAL RIGHT DIGITAL DIAGNOSTIC MAMMOGRAM 3D/2D POST-PROCEDURE IMAGING FOR MARKER PLACEMENT: 07/06/2024 CLINICAL: Right post clip. Comparison is made to exams dated: 06/06/2024 mammogram, 05/23/2024 mammogram, and 06/06/2024 [facility]. The breasts are heterogeneously dense, which may obscure small masses (category c / 51-75% glandular tissue). There is a marker clip in the appropriate position in the right breast at 12 o'clock middle depth. This marker clip placement is at the biopsy site. IMPRESSION: POST PROCEDURE MAMMOGRAM FOR MARKER PLACEMENT There was a successful marker clip placement in the right breast middle depth. Based on the Tyrer Cuzick model (a risk assessment model) the patient's lifetime risk is 8.6% and her 10 year risk is 6.4%. According to the ACR, ACS, and NCCN guidelines, an annual breast MRI exam along with mammogram is recommended if the patient's lifetime risk is 20% or greater. This exam was interpreted at Station ID: [id number]. NOTE: For mammograms, a report in lay terms will be sent to the patient. Approximately 15% of breast malignancies will not be visualized mammographically. In the management of a palpable breast mass, a negative mammogram must not discourage biopsy of a clinically suspicious lesion. Electronically Signed By: Erik davila/penelope:07/06/2024 12:13:55 ACR BI-RADS Category Post-Procedure Mammogram for Marker Placement
== END ==
PROVIDERS: PCP Internal Medicine; Referring Provider Internal Medicine; Visit Provider Internal Medicine
DX: C50.811 Malignant neoplasm of overlapping sites of right female breast (principal); R92.8 Other abnormal and inconclusive findings on diagnostic imaging of breast; R92.333 Mammographic heterogeneous density, bilateral breasts; Z17.0 Estrogen receptor positive status [ER+]; Z17.21 Progesterone receptor positive status
CPT/HCPCS: 19083; 77065

== ENCOUNTER 2024-07-25 08:20 | Day surgery (SDC) | payer OTHER, MEDICARE, SELFPAY ==
[2024-07-19 15:16] VITALS: BMI 30.5
--- NOTE | 2024-07-25 | DI.RAD.S_ITS ---
PROCEDURE: XR CHEST 1V INDICATIONS: wire loc breast TECHNIQUE: One view of the chest was acquired. COMPARISON: None. FINDINGS/IMPRESSION: Breast biopsy marker noted at the periphery of specimen. Dictated by: Rick Layne M.D. on 07/25/2024 at 14:38 Approved by: Rick Layne M.D. on 07/25/2024 at 14:39
--- NOTE | 2024-07-25 | PATH_ITS ---
[facility] Accession Number: [id number] No. of containers..04 Tissue . 01 Material submitted: . PART A: axillary tail of breast - RIGHT AXILLARY SENTINEL NODE PART B: breast - RIGHT BREAST WITH NEEDLE (WIRE) PART C: breast - RIGHT BREAST NEW LATERAL MARGIN PART D: breast - RIGHT BREAST NEW MEDIAL MARGINS . 01 Clinical history: . A) TARGETED COUNT 1904, BACK GROUND COUNT 68 (OOB @ 1355 B) RIGHT BREAST WITH NEEDLE (WIRE) IN BREAST. MARKERS: GREEN ANTERIOR, BLUE INFERIOR, ORANGE LATERAL, YELLOW MEDIAL, C) LATERAL MARGIN D) MEDIAL MARGIN . 01 Diagnosis: A. RIGHT AXILLARY SENTINEL NODE: Two lymph nodes, negative for metastatic carcinoma on H/E and immunohistochemistry. . B. RIGHT BREAST WITH NEEDLE, WIRE LOCALIZED LUMPECTOMY: Breast parenchyma with fibrocystic changes, usual duct hyperplasia and associated microcalcifications. Foreign body associated giant cell reaction. No evidence of residual in situ or invasive carcinoma. . C. 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 No evidence of comedonecrosis or extensive intraductal component. Maximum linear dimension: 3 mm on one slide. See comment. Margins: Closest margin edge (concave surface) is 1 mm. All other margins are negative. No evidence of residual invasive carcinoma. . D. 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 Maximum linear dimension: 1 mm on one slide. Margins: See comment. No evidence of residual invasive carcinoma. MRV 08/02/2024 1524 Local . 01 Comment: C-D. Residual DCIS is identified on blocks C5 (2 mm focus), C7 (3 mm focus), C9 ( less than 1 mm focus) and on D1 (1 mm focus). The focus of DCIS on D1 is present 1 mm from the green inked edge (convex surface) and is cauterized. Due to the cauterization, it is difficult to determine whether the focus represents a true margin. Clinical correlation is recommended. The pathologic stage is pTis pN0. . Prognostic and predictive markers performed on the biopsy (pathology accession# [id number]) are as follows: ER, positive, strong intensity, 91-100% of the tumor cells, ME Positive, intermediate to strong intensity, 81-90% of the tumor cells. . Findings were given to Ms Hobbs, nurse to on 08/02/24 at 1500 hours by . Selected slides from the case (slides C7 and D1 and accompanying IHC) have also been reviewed by Dr. Zoe Starr, who concurs with the diagnosis. . 01 Electronically signed: . Eve Michel MD, Pathologist NPI- [id number] . 01 Gross description: . A. Received in formalin with two patient identifiers and right axillary sentinel node, are two lymph node candidates. The first is blue and is 1.6 cm in greatest dimension while the second is haider and is 0.6 cm in greatest dimension. Submitted entirely as follows: A1: Serially sectioned blue lymph node candidate. A2: Haider bisected lymph node candidate. . The specimen was removed on 07/25/2024 at 1355, time in formalin 1356. Cold ischemic time is 1 minute, and total fixation time is approximately 60 hours following additional fixation. B. Received: Fresh and subsequently placed in formalin with two identifiers and right breast with needle wire in breast is a previously inked right lumpectomy. Weight: 24 grams. Measurement: 6.6 cm superior to inferior, 3.2 cm medial to lateral, 1.5 cm anterior to posterior. Skin ellipse: Absent. Wire : Present penetrating superiorly and terminating inferiorly. Margins: Inked by the surgeon as follows: Anterior green, inferior blue, lateral orange, medial yellow, superior red. Black ink is not identified on the specimen and no ink is applied to the posterior margin which will now be inked black. Inking reinforced at the bench. Sectioned: From superior to inferior into 12 slices. Lesion: No lesions identified. Other: The cut surfaces are yellow to white fibroadipose tissue with fibrous tissue occupying approximately 10% of the cut surface with no biopsy site identified. Submitted entirely as follows: B1-B3: Slice 1. B4: Slice 2. B5: Slice 3. B6: Slice 4. B7: Slice 5. B8: Slice 6. B9: Slice 7. B10: Slice 8. B11: Slice 9. B12: Slice 10. B13: Slice 11. . The specimen was removed on 07/25/2024 and is received without formalin. Cold ischemic time is approximately 18 hours and total fixation time is approximately 42 hours following additional fixation. B14-B15: Slice 12, blue margin perpendicular. C. Received in formalin with two patient identifiers and right breast new lateral margin, is an unoriented fragment of yellow lobulated fibroadipose tissue weighing 12 grams and measuring 5.5 x 4.0 x 1.5 cm. The concave surface is inked black while the convex surface is inked blue. The fragment is serially sectioned into nine slices to reveal yellow to white fibroadipose tissue with fibrous tissue occupying approximately 40% of the cut surface. No biopsy site or discrete lesions are identified. Specimen is submitted entirely as follows: C1-C2: Slice 1, perpendicular. C3-C9: Sequential slices 2-8. C10-C11: Entire slice 9, perpendicular. . The specimen was removed on 07/25/2024, time not provided. Cold ischemic time cannot be calculated. Total fixation time is approximately 65 hours following fixation. D. Received in formalin with two patient identifiers and right breast new medial margin, is an unoriented fragment of yellow lobulated fibroadipose tissue weighing 9 grams and measuring 6.0 x 3.2 x 1.5 cm. The concave surface is inked black while the convex surface is inked green, and the fragment is serially sectioned into 10 slices to reveal yellow to white fibroadipose tissue with white fibrous tissue occupying approximately 10% of the cut surface. No biopsy sites or distinct lesions are identified. The specimen is submitted entirely as follows: D1: Slice 1 perpendicular. D2-D7: Slices 2-9. D8: Slice 10, perpendicular. . The specimen was removed on 07/25/2024, time not provided. Cold ischemic time cannot be calculated. Total fixation time is approximately 65 hours following fixation. ([id number]) /MRV 08/02/2024 1524 Local . 01 Microscopic: . Residual DCIS is identified on slides C5, C7, C9, and D1 are confirmed with ER and CK5/6 immunostains. Controls stain appropriately. . * This test was developed and the performance characteristics were validated by [facility]. It has not been cleared or approved by the U.S. Food and Drug Administration. . 01 Pathologist provided ICD-10: C50.911 . 01 CPT . 122715, 581968, 035999, 218357, C92588, V97416 Specimen Comment: A courtesy copy of this report has been sent to [phone] Performed at: [address] [address], [place], [place] [id number] MD Reed Jones MD Phone: [phone]
--- NOTE | 2024-07-25 08:20 | DI.NM.S_ITS ---
PROCEDURE: NM SENTINEL NODE INJECT ONLY RADIOPHARMACEUTICAL: 0.5-1.0 mCi Millipore filtered Tc-99m sulfur colloid. INDICATIONS: right breast cancer COMPARISON: None. PROCEDURE: The area around the nipple was prepped and draped in a sterile fashion. Tc-99m sulfur colloid was injected intra-dermally around the outer edge of the areola in the right breast. No image was obtained. IMPRESSION: Administration of radiotracer into the right breast periareolar region for intra-operative sentinel lymph node localization. Dictated by: Cristopher Mcgovern M.D. on 07/25/2024 at 10:56 Approved by: Cristopher Mcgovern M.D. on 07/25/2024 at 10:57
[2024-07-25 08:46] VITALS: BMI 30.4
[2024-07-25 08:54] VITALS: BP 138/65; PULSE 52; RESP 20; TEMP 36.7; O2SAT 96
[2024-07-25] MEDS: LACTATED RINGERS 1,000 ML 42 ML IV (11:12)
--- NOTE | 2024-07-25 12:51 | PM.PREOP ---
Pre-operative Note COVID-19 COVID-19 status: Not tested Interval Note History & Physical reviewed/Exam performed by Physician: Yes Changes to H&P: No ASA Class (for procedural sedation): II
[2024-07-25] MEDS: CEFAZOLIN 2 GM/100 ML PREMIX 100 ML IV (13:15)
[2024-07-25] MEDS: METHYLENE BLUE 50 MG/10 ML VIAL INJ (13:22)
--- NOTE | 2024-07-25 13:34 | SUR.OPER ---
1322 TIME OUT COMPLETED FOR METHYLENE BLUE INJECTION TO RIGHT BREAST.
--- NOTE | 2024-07-25 13:34 | SUR.OPER ---
3842 TIME OUT COMPLETED FOR SURGICAL INCISION
--- NOTE | 2024-07-25 14:17 | SUR.OPER ---
1416 BREAST SPECIMEN TAKEN TO RADIOLOGY FOR CONFIRMATION OF WIRE
[2024-07-25] MEDS: BUPIVACAINE 0.5% W/ EPI (PF) 10 ML VIAL INJ (14:33)
[2024-07-25] MEDS: LIDOCAINE 1% 20 ML INJ (14:34)
--- NOTE | 2024-07-25 14:40 | P.OP_ITS ---
Operative Date/Time/Diagnoses Date of procedure: 07/25/24 Time of procedure: 14:40 Pre-op diagnosis: Right breast cancer Post-op diagnosis: same Procedure & Clinicians Procedure: Right wire localization lumpectomy Right axillary dissection Same procedure as scheduled: Yes Surgeon: Magen Flores Bowling Ball Mold Assembler: Bryce Dorantes Anesthesia Type: General Operative Notes Procedure in detail: The patient was given preoperative antibiotic. The patient was brought to the operating room, placed on the table in the supine position, general anesthesia was induced. Arms were abducted on arm boards. 4 mL of 50% methylene blue were injected near the left areolar border. The right breast and axilla were prepped and draped in the usual fashion. A time-out was performed. Additional massage was performed to spread the methylene blue. The lymphoscintigraphy probe was used to identify a potential sentinel node. We injected local anesthetic into the skin and made a transverse right axillary incision of roughly 6 cm. We dissected down through the subcutaneous adipose tissue until we could more easily palpate the palpable node. There were a few small putative nodes that were resected from the axilla but there was no signal and no blue dye. Then we found a large, hot, blue node in the mid axilla and resected it. The ex vivo count was 19,000 and the background count was 68. We then packed axilla with a lap pad. We then turned to the right breast. We made a 7 cm radial incision adjacent to the wire in the upper middle breast. We created flaps superior and inferior to the incision and then dissected down to the anterior chest wall keeping the wire within the center portion of specimen. Once the lumpectomy specimen was completely excised we took it to the back table for marking. We painted it in the following manner: Anterior: Green Inferior: Blue Lateral: [place] Medial: Yellow Posterior: Black Superior: Red The specimen was sent to Radiology for specimen mammogram. They contacted us to let us know that they saw everything in the specimen mammogram. We then irrigated both wound cavities initially with sterile saline. Local anesthetic was injected into the muscle layer of the lumpectomy site. A few bleeders were cauterized. Once the wound cavities were hemostatic we injected some local anesthetic into the dermis and closed both incisions in layers using multiple interrupted 3-0 Vicryl dermal sutures followed by a running 4-0 Monocryl subcuticular closure. Steri-Strips were applied followed by dry gauze and a breast binder. EBL: 10 mL Post-operative Condition: stable Disposition: PACU
[2024-07-25 14:54] VITALS: BP 184/84; PULSE 73; RESP 13; TEMP 36.6; O2SAT 100
[2024-07-25 14:58] VITALS: BP 184/86; PULSE 69; RESP 15; O2SAT 93
[2024-07-25 15:03] VITALS: BP 172/79; PULSE 71; RESP 14; O2SAT 93
[2024-07-25] MEDS: OXYCODONE/ACETAMINOPHEN 5/325 TABLET 1 TAB PO ×2 (15:06→16:10)
[2024-07-25 15:08] VITALS: BP 161/68; PULSE 71; RESP 12; TEMP 36.6; O2SAT 94
--- NOTE | 2024-07-25 15:37 | SUR.PHASEII ---
Pt is resting. She states her pain is maybe getting a bit better but still is about a 5. She does not want another pain pill yet and would like a little more time. Will continue to monitor.
[2024-07-25 16:05] VITALS: BP 166/84; PULSE 56; RESP 16; TEMP 36.8; O2SAT 94
== END 2024-07-25 16:35 | disposition home or self-care (01) ==
PROVIDERS: PCP Internal Medicine; Referring Provider Surgery; Visit Provider Surgery
PROC: (CPT 19301; principal; 2024-07-25 13:15)
DX: D05.11 Intraductal carcinoma in situ of right breast (principal); Z17.0 Estrogen receptor positive status [ER+]; Z17.32 Human epidermal growth factor receptor 2 negative status; Z17.21 Progesterone receptor positive status; F17.210 Nicotine dependence, cigarettes, uncomplicated; Z20.6 Contact with and (suspected) exposure to human immunodeficiency virus [HIV]
CPT/HCPCS: 38525; 19301; 19285; 38792; 71045; A9541; C1819; J0690; J1100; J2250; J2405; J2704; J3010; Q9968

== ENCOUNTER → 2024-07-25 | Outpatient (CLI) | payer OTHER, MEDICARE, SELFPAY ==
--- NOTE | 2024-07-25 08:20 | DI.US.S_ITS ---
NEEDLE LOCALIZATION RIGHT BREAST: 07/25/2024 CLINICAL: RT BREAST WIRE LOC PLACEMENT. Correlation is made to exams dated: 07/06/2024 ultrasound biopsy, 07/06/2024 mammogram, 06/06/2024 ultrasound, 06/06/2024 mammogram, 05/23/2024 mammogram, and 04/16/2023 mammogram - [facility]. A needle localization was performed for the abnormality located in the right breast at 12 o'clock middle depth. The skin was prepped in the usual manner. A needle was inserted into the targeted area. IMPRESSION: NEEDLE LOCALIZATION Needle localization for the abnormality in the right breast at 12 o'clock middle depth was performed. This exam was interpreted at Station ID: Unknown. Rick hidalgo/penelope:08/06/2024 09:05:00 Entry: - 08/07/2024 10:34:41
== END ==
LOC: NUCM 08:19
PROVIDERS: PCP Internal Medicine; Referring Provider Surgery; Visit Provider Surgery
DX: C50.911 Malignant neoplasm of unspecified site of right female breast (principal)
CPT/HCPCS: 19285; 38792; A9541; C1819

== ENCOUNTER → 2024-08-13 08:28 | Outpatient (CLI) | payer OTHER, MEDICARE, SELFPAY ==
--- NOTE | 2024-08-13 08:30 | DI.MG.S_ITS ---
UNILATERAL RIGHT DIGITAL DIAGNOSTIC MAMMOGRAM 3D/2D WITH ADDITIONAL VIEWS: 08/13/2024 CLINICAL: Additional evaluation requested from prior study. Post wire loc. Comparison is made to exams dated: 07/25/2024 localization, 07/06/2024 mammogram, 06/06/2024 mammogram, and 05/23/2024 mammogram - . The breasts are heterogeneously dense, which may obscure small masses (category c / 51-75% glandular tissue). There are new surgical clips in the right breast at 11 o'clock in the middle to posterior depth. There also is a stable biopsy clip in the right breast at 12 o'clock in the middle depth. What may be the biopsied mass is immediately anterior to the biopsy marker on the CC view only. This is not as well seen on the lateral views. Additionally, there are new surgical clips in the right axilla. No significant masses, calcifications, or other findings are seen in the breast. IMPRESSION: INCOMPLETE: NEED ADDITIONAL IMAGING EVALUATION The biopsy site marker indicating malignancy remains in the breast at the 12:00 position middle depth. New surgical clips are present as described. Breast MRI for extent of remaining disease is could be considered if clinically warranted. Clinical and oncologic follow up recommended. Results conveyed to the patient at time of imaging. This exam was interpreted at Station ID: [id number]. NOTE: For mammograms, a report in lay terms will be sent to the patient. Approximately 15% of breast malignancies will not be visualized mammographically. In the management of a palpable breast mass, a negative mammogram must not discourage biopsy of a clinically suspicious lesion. Electronically Signed By: Yaneth zaragoza/:08/13/2024 10:08:00 Entry: lizbeth - 08/14/2024 09:01:01 letter sent: Clinical Evaluation ACR BI-RADS Category 0: Incomplete: Need Additional Imaging Evaluation
== END ==
PROVIDERS: PCP Internal Medicine; Referring Provider Surgery; Visit Provider Surgery
DX: C50.911 Malignant neoplasm of unspecified site of right female breast (principal); R92.8 Other abnormal and inconclusive findings on diagnostic imaging of breast; R92.333 Mammographic heterogeneous density, bilateral breasts
CPT/HCPCS: 77065; G0279

== ENCOUNTER → 2024-08-22 07:52 | Outpatient (CLI) | payer OTHER, MEDICARE, SELFPAY ==
--- NOTE | 2024-08-22 09:30 | DI.MG.S_ITS ---
MM needle loc RT 2D: 08/22/2024. CLINICAL: 73-year old female for right procedure that resulted from ultrasound, right on 06/06/2024. No Tyrer-Cuzick risk score calculation due to the patient's personal history of breast cancer. Patient reports a history of right breast carcinoma diagnosed at age 73. Status-post right lumpectomy. Current reported family history of breast cancer: mother, sister and maternal aunt. Patient was diagnosed within the last 5 years. The patient had a prior right breast biopsy. PRIOR EXAMS 07/25/2024, 07/06/2024, 06/06/2024, 05/23/2024, 04/16/2023, 04/04/2021, 05/31/2019, 05/05/2017, 09/12/2015. CONSENT Risks including but not limited to bleeding and infection, benefits and alternatives were discussed with the patient. The patient agreed to the procedure and signed informed consent. Time out procedure was used. ROUTINE Right: Patient positioned in the sitting position, prepped and draped in the usual manner using sterile technique. TECHNIQUE Right Breast: Upper at 12:00: Procedure: Mammographically-guided needle-wire localization of a biopsy marker. Device: 9 cm Kopans style needle-wire assembly. Approach: Superior. Anesthesia: Local anesthesia obtained using 8 ml 1%-lidocaine. Skin Entry: Direct. Targeting Confirmation: Real-time Observation and Post-Procedure Imaging. Localizer Placement: Reinforced segment of wire placed anterior to target location. Post-procedure imaging: Post-procedure imaging confirms wire to be in target location. Conclusion: Mammographically-guided Needle-wire localization with post-procedure CC and ML mammographic views. COMPLICATIONS: No complications were encountered while the patient was in our department. DISPOSITION The patient tolerated the procedure well. CC and Lateral images of the breast were obtained and sent to the OR with the patient. SUMMARY Right Breast: Upper at 12:00: Mammographically-guided needle-wire localization of a biopsy marker. ELECTRONICALLY SIGNED: Devin Carlson M.D. on 08/22/2024 at 11:00:50 AM Interpreting Station ID: [id number]
--- NOTE | 2024-08-22 11:45 | DI.MG.S_ITS ---
MM surgical specimen RT: 08/22/2024. CLINICAL: 73-year old female for exam. PRIOR EXAMS 07/25/2024, 07/06/2024, 06/06/2024, 05/23/2024, 04/16/2023, 04/04/2021, 05/31/2019, 05/05/2017, 09/12/2015. TECHNIQUE Right specimen radiograph. FINDINGS The target vision clip and wire are visualized in the specimen. Pathology report is pending. IMPRESSION: * A wire and vision biopsy marker are seen in the specimen. COMMENTS: Discussed with referring surgeon at time of surgery. ELECTRONICALLY SIGNED: Devin Carlson M.D. on 08/22/2024 at 12:07:20 PM Interpreting Station ID: [id number]
== END ==
PROVIDERS: PCP Internal Medicine; Referring Provider Surgery; Visit Provider Surgery
DX: C50.811 Malignant neoplasm of overlapping sites of right female breast (principal); Z80.3 Family history of malignant neoplasm of breast
CPT/HCPCS: 19281; 76098; C1819

== ENCOUNTER 2024-08-22 07:55 | Day surgery (SDC) | payer OTHER, MEDICARE, SELFPAY ==
[2024-08-16 12:20] VITALS: BMI 30.5
[2024-08-22] VITALS (11 sets, daily range): BP systolic 103–143; BP diastolic 55–80; PULSE 53–69; RESP 10–22; TEMP 36.1–36.4; O2SAT 91–97; BMI 30.5
--- NOTE | 2024-08-22 | PATH_ITS ---
[facility] Accession Number: [id number] No. of containers..01 Tissue . 01 Material submitted: . breast - RIGHT BREAST . 01 Clinical history: . RIGHT BREAST TISSUE WITH NEEDLE LOCAL IN PLACE . 01 Diagnosis: RIGHT BREAST TISSUE, RE-EXCISION LUMPECTOMY: Residual invasive ductal carcinoma is present, low grade, grade 1/3. Largest dimension as measured microscopically on the glass slide: 5 mm (slide A4). Negative for lymphovascular invasion. Ductal carcinoma in situ (DCIS): Present, cribriform pattern, low nuclear grade. No evidence of comedonecrosis or extensive intraductal component. Maximum linear dimension of DCIS: 2 mm on a slide. -Scattered and discontinuous ducts involved by Atypical Ductal Hyperplasia/Ductal Carcinoma in situ, in five out of seven slides examined. Additional findings: Previous biopsy changes, fibrocystic changes, and calcifications associated with benign ducts. . Surgical margins: Negative for invasive carcinoma. Invasive carcinoma is 2 mm from the closest posterior margin (black-inked, slide A4) and 4 mm from the closest lateral margin (orange-inked, slide A4). . Surgical margins: Negative for ductal carcinoma in situ; however, ductal carcinoma in situ is present less than 1 mm from the closest posterior margin (blocks A4 and A5), 1 mm from the closest anterior margin (green-inked, slide A2) and 3 mm from the closest medial margin (yellow-inked, slide A6). . Please see microscopic description. [facility] 08/30/2024 1504 Local . 01 Electronically signed: . Qi Starr MD, Pathologist NPI- [id number] . 01 Gross description: . Received: In formalin, with two patient identifiers and right breast tissue with needle local in place. Specimen: Previously inked right lumpectomy. Weight: 15 grams. Measurement: 5.9 cm superior to inferior, 2.8 cm medial to lateral, 1.5 cm anterior to posterior. Skin ellipse: Absent. Wire: Present, penetrating superiorly and terminating inferiorly. Margins: Inked by the surgeon as follows: Anterior green, inferior blue, lateral orange, medial yellow, posterior black, superior red. Inking reinforced at the bench. Sliced: From superior to inferior into 11 slices. Lesion: One lesion identified. Description: An ill-defined, firm, yellow-matthews lesion. Size: 0.9 x 0.9 x 0.7 cm. Slices involved: Slices 4 and 5. Biopsy site: A Vision-shaped biopsy clip is found within slice 6. Distance to margins: The palpated lesion grossly involves the black and orange-inked margin, 0.4 cm from the green margin, 0.6 cm from the yellow margin, and is widely free from all remaining margins. The biopsy clip is found 0.3 cm from the black-inked margin, 0.5 cm from the orange-inked margin, 0.7 cm from the green-inked margin, 0.6 cm from the yellow inked margin, and is widely free from all remaining margins. Other: The remaining cut surfaces are yellow to white fibroadipose tissue with white fibrous tissue occupying approximately 10%. No additional lesions identified. Fixation: Specimen was removed on 08/22/2024, time not provided. Cold ischemic time cannot be calculated. Total fixation time is approximately 65 hours following additional fixation. Rag Cutting Machine Feeder sections are submitted as follows: A1: Rep slice 1, red margin perpendicular. A2: Slice 3, no lesion. A3: Slice 4. A4: Slice 5. A5: Slice 6, biopsy site. A6: Slice 7, no lesion. A7: Slice 11, rep blue margin perpendicular. ([id number]) /MRV 08/23/20247 Local . 01 Microscopic: . P63 and myosin immunostains are performed on block A4, and the absence of myoepithelial/basal cell layer supports the diagnosis of invasive carcinoma, close to the previous biopsy changes. . In addition, CK5/6 and ER immunostains are performed on blocks A1, A2, A3, A4, A5, A6 to more precisely evaluate for possible margin involvement by ADH/DCIS as morphologic evaluation was in areas limited due to cautery artifact. . * This test was developed and the performance characteristics were validated by [facility]. It has not been cleared or approved by the U.S. Food and Drug Administration. . 01 Pathologist provided ICD-10: C50.919 . 01 CPT . 250542, E45377, T51750 Specimen Comment: A courtesy copy of this report has been sent to [phone] Performed at: [address] [id number] MD Reed Jones MD Phone: [phone]
[2024-08-22] MEDS: FAMOTIDINE 20 MG/2 ML VIAL IV (08:43)
[2024-08-22] MEDS: ACETAMINOPHEN 325 MG TABLET 975 MG PO (08:43)
[2024-08-22] MEDS: SCOPOLAMINE 1 PATCH TOP (08:46)
[2024-08-22] MEDS: LACTATED RINGERS 1,000 ML 42 ML IV ×2 (10:07→12:35)
--- NOTE | 2024-08-22 10:49 | PM.PREOP ---
Pre-operative Note COVID-19 COVID-19 status: Not tested Interval Note History & Physical reviewed/Exam performed by Physician: Yes Changes to H&P: No ASA Class (for procedural sedation): II
--- NOTE | 2024-08-22 11:47 | SUR.OPER ---
BREAST TISSUE OOB @ 1143. SPECIMEN OUT OF ROOM AT 1147 BY SANJEEV WALLACE RN
--- NOTE | 2024-08-22 11:53 | SUR.OPER ---
1153 RADIOLOGIST CALLED TO ROOM WITH VERBAL WIRE AND CLIP SEEN IN SPECIMEN. DR. MOURA AWARE OF FINDINGS.
[2024-08-22] MEDS: BUPIVACAINE 0.5% W/ EPI (PF) 30 ML VIAL INJ (11:57)
--- NOTE | 2024-08-22 12:08 | PM.OP.1 ---
Operative Date/Time/Diagnoses Date of procedure: 08/22/24 Time of procedure: 12:08 Pre-op diagnosis: Right breast cancer Post-op diagnosis: same Procedure & Clinicians Procedure: Right wire localization lumpectomy Same procedure as scheduled: Yes Surgeon: Jesse Flores Anesthesia Type: General Operative Notes Procedure in detail: The patient had a wire localization performed at Radiology prior to arrival in the perioperative area. The patient was brought to the operating room, placed on the table in the supine position, general anesthesia was induced. The right breast was prepped and draped in the usual fashion. A time-out was performed. We opened the prior incision which was just lateral to the wire. We dissected down through the breast tissue following the wire. This time the wire seemed to be tracking more medially and posteriorly than the prior wire. We did enter the old seroma cavity which was more lateral than the existing wire. The specimen was excised with the wire intact. We used the margin marker kit to orient the specimen in the following manner: Green: anterior Blue: Inferior [place]: Lateral Yellow: Medial Black: Posterior Read: Superior We imaged the specimen with the portable C-arm in the operating room and noted the clip within the specimen. The specimen was sent to Radiology for a formal specimen mammogram. We then irrigated the wound cavity with sterile saline. Local anesthetic was injected into the deep tissue. A few bleeders were cauterized. We placed a few hemoclips to jesse the new cavity. Once the wound cavity was hemostatic we injected some local anesthetic into the dermis and closed the incision in layers using multiple interrupted 3-0 Vicryl dermal sutures followed by a running 4-0 Monocryl subcuticular closure. Radiology called the OR reporting that the clip was visualized within the specimen. Steri-Strips were applied followed by dry gauze and a breast binder. EBL: 10 mL Specimen: Right breast tissue Post-operative Condition: stable Disposition: PACU
[2024-08-22] MEDS: BENZOCAINE/MENTHOL 1 LOZ PKT 1 EACH PO (13:57)
== END 2024-08-22 13:58 | disposition home or self-care (01) ==
PROVIDERS: PCP Internal Medicine; Referring Provider Surgery; Visit Provider Surgery
PROC: (CPT 19301; principal; 2024-08-22 11:15)
DX: C50.911 Malignant neoplasm of unspecified site of right female breast (principal); Z80.3 Family history of malignant neoplasm of breast; Z87.891 Personal history of nicotine dependence; C50.811 Malignant neoplasm of overlapping sites of right female breast
CPT/HCPCS: 19301; 19281; 76098; C1819; J1100; J2250; J2405; J2704; J3010; J3490

== ENCOUNTER → 2024-08-28 12:41 | Outpatient (CLI) | payer OTHER, MEDICARE, SELFPAY ==
--- NOTE | 2024-08-28 12:44 | DI.RAD.S_ITS ---
PROCEDURE: XR DEXA AXIAL SKELETON INDICATIONS: OSTEOPENIA,MALIG HELIO RT BREAST COMPARISON: None. FINDINGS: Lumbar Spine: Bone mineral density 1.037 g/cm2, T score -0.1. Left Femoral Neck: Bone mineral density 0.603 g/cm2, T score -2.2 Left Hip: Bone mineral density 0.813 g/cm2, T score -1.1. Fracture Risk Calculation (when applicable): 10-year fracture risk of a major osteoporotic fracture 21 percent and of a hip fracture 9.3 percent. (T score greater or equal to -1.0 to: NORMAL) (T score from -1.1 to -2.4: OSTEOPENIA) (T score less than or equal to -2.5: OSTEOPOROSIS) IMPRESSION: Osteopenia---recommend repeat DEXA in 2-3 years for reassessment. Follow-up guidelines as follows: Osteoporosis: Consider a repeat DEXA and Vertebral Fracture Assessment (VFA) exam in 2 years or sooner if medically necessary, to reassess this patient's status. Osteopenia: Consider a repeat DEXA in 2-3 years to reassess this patient's status, or if there is a new clinical indication. Normal: Consider a repeat DEXA in 5 years or sooner, or if there is a new clinical indication. All treatment decisions require clinical judgment and consideration of individual patient factors, including patient preferences, comorbidities, previous drug use, risk factors not captured in the FRAX model (e.g., frailty, falls, vitamin D deficiency, increased bone turnover, interval significant decline in bone density ) and possible under- or over-estimation of fracture risk by FRAX. In addition, the NOF Guide recommends that FDA-approved medical therapies be considered in postmenopausal women and men age >= 50 years with a: * Hip or vertebral (clinical or morphometric) fracture * T-score of <=-2.5 at the spine or hip * Ten-year fracture probability by FRAX of >= 3% for hip fracture or >=20% for major osteoporotic fracture. Dictated by: Ramón Maradiaga M.D. on 08/29/2024 at 2:44 Approved by: Ramón Maradiaga M.D. on 08/29/2024 at 2:45
== END ==
PROVIDERS: PCP Internal Medicine; Referring Provider Internal Medicine Hematology & Oncology; Visit Provider Internal Medicine Hematology & Oncology
DX: C50.811 Malignant neoplasm of overlapping sites of right female breast (principal); M85.89 Other specified disorders of bone density and structure, multiple sites; Z17.0 Estrogen receptor positive status [ER+]
CPT/HCPCS: 77080

== ENCOUNTER → 2025-05-03 09:24 | Outpatient (CLI) | payer OTHER, MEDICARE, SELFPAY ==
--- NOTE | 2025-05-03 09:27 | DI.MG.S_ITS ---
MM diagnostic mammo BI: 05/03/2025. BI-RADS: 2 CLINICAL: 74-year old female for bilateral diagnostic mammogram. The patient presents for routine post-lumpectomy imaging; diagnostic exam is performed as requested by the referring MD. No Tyrer-Cuzick risk score calculation due to the patient's personal history of breast cancer. Patient reports a history of right breast carcinoma diagnosed at age 73. Status-post right lumpectomy with radiation therapy and hormonal therapy. PRIOR EXAMS 08/22/2024, 08/13/2024, 07/25/2024, 07/06/2024, 06/06/2024, 05/23/2024, 04/16/2023, 04/04/2021, 05/31/2019. MAMMOGRAPHY TECHNIQUE: 2D and 3D (tomosynthesis) digital mammographic views obtained, with additional images as needed for full coverage. Current study was also evaluated with a Computer Aided Detection (CAD) system. DENSITY C. The breasts are heterogeneously dense, which may obscure small masses. MAMMOGRAPHY FINDINGS Right: Benign-appearing post-surgical changes noted on the right. There are no suspicious masses, calcifications, or other findings in the breast. Left: No suspicious mass, asymmetry, microcalcification, or other abnormality seen. IMPRESSION: Right * No evidence of malignancy with benign findings. Left * No evidence of malignancy. RECOMMENDATIONS Bilateral * Annual screening mammography. COMMENTS: Findings and recommendations were conveyed to the patient during today's evaluation. A 1 year screening mammogram is recommended; however, shorter interval surveillance can be considered at the direction of the treating oncologic/surgical team. OVERALL ASSESSMENT CATEGORY BI-RADS-2: Benign. The [employer] recommends annual screening mammography beginning at age 40 for women with average risk of breast cancer. ELECTRONICALLY SIGNED: Johanne Wilder M.D. on 05/03/2025 at 11:45:16 AM PT Interpreting Station ID: [id number]
== END ==
LOC: MAMMO 09:25
PROVIDERS: PCP Internal Medicine
DX: C50.811 Malignant neoplasm of overlapping sites of right female breast (principal); Z17.0 Estrogen receptor positive status [ER+]; R92.333 Mammographic heterogeneous density, bilateral breasts
CPT/HCPCS: 77066; G0279